=== PATIENT | female | born 1995 | race Hispanic/Latino ===

== ENCOUNTER 2022-05-19 05:11 | Emergency (ER) | payer OTHER ==
[~2022-05-19] VITALS: Ht 175.3 cm; Wt 108.9 kg
[2022-05-19] MEDS ORDERED: MAG/ALUM/SIMETH 30 ML UDCUP ONE (05:34)
[2022-05-19] MEDS ORDERED: DICYCLOMINE HCL 10 MG/5 ML ML PO ONE (05:34)
[2022-05-19] MEDS ORDERED: LIDOCAINE HCL 2% VISCOUS 15 ML UDCUP ONE (05:34)
[2022-05-19] MEDS ORDERED: ONDANSETRON ODT 4MG TAB ONE (05:35)
[2022-05-19] MEDS ORDERED: MORPHINE 2 MG SYG ONE (05:54)
[2022-05-19] MEDS ORDERED: PANTOPRAZOLE 40 MG/VIAL ONE (05:54)
[2022-05-19] MEDS ORDERED: 0.9%NACL 1000ML 1,000 ML IV ONE ×2 (05:56→06:00)
[2022-05-19] MEDS ORDERED: MORPHINE 2 MG SYG IVP ONE (06:00)
[2022-05-19] MEDS ORDERED: ONDANSETRON 4MG INJ IVP ONE (06:00)
[2022-05-19] MEDS ORDERED: MAG/ALUM/SIMETH 30 ML UDCUP PO ONE (06:00)
[2022-05-19] MEDS ORDERED: LIDOCAINE HCL 2% VISCOUS 15 ML UDCUP PO ONE (06:00)
[2022-05-19] MEDS ORDERED: ONDANSETRON ODT 4MG TAB SL ONE (06:00)
[2022-05-19] MEDS ORDERED: PANTOPRAZOLE 40 MG/VIAL IVP ONE (06:00)
[2022-05-19] MEDS ORDERED: DICYCLOMINE HCL 10 MG/5 ML ML PO SCH (06:00)
[2022-05-19 06:37] LABS: HCG,QUALITATIVE URINE NEGATIVE (NEGATIVE)
[2022-05-19 06:38] LABS: BASOPHILS % (AUTO) 0.3 % (0.0-5.0); EOSINOPHILS % (AUTO) 0.7 % (0.0-8.0); LYMPHOCYTES % (AUTO) 16.6 % (21.0-51.0); MEAN CORPUSCULAR HEMOGLOBIN 27.1 pg (27.0-33.0); MEAN CORPUSCULAR HGB CONC 32.5 g/dL (32.0-36.0); MEAN CORPUSCULAR VOLUME 83.5 fL (79-99); MONOCYTES % (AUTO) 3.9 % (3.0-13.0); NEUTROPHILS % (AUTO) 78.2 % (40.0-77.0); PLATELET COUNT (AUTO) 330 K/uL (130-400); RED BLOOD CELL COUNT(AUTO) 4.79 MIL/uL (4.00-5.50); RED CELL DISTRIBUTION WIDTH 13.9 % (11.0-15.5); WHITE BLOOD COUNT (AUTO) 10.7 K/uL (4.8-10.8)
[2022-05-19 06:43] LABS: CREATININE 0.8 mg/dL (0.5-1.5); POTASSIUM 3.6 mmol/L (3.5-5.1)
[2022-05-19 06:47] LABS: ALBUMIN 4.1 g/dL (3.5-5.0); TOTAL PROTEIN, SERUM 8.5 g/dL (6.0-8.3)
[2022-05-19 06:51] LABS: APPEARANCE,URINE CLOUDY (CLEAR); BILIRUBIN,URINE NEGATIVE (NEGATIVE); COLOR,URINE LIGHT-YELLOW (YELLOW); GLUCOSE, URINE (UA) NEGATIVE (NEGATIVE); KETONES,URINE NEGATIVE (NEGATIVE); LEUKOCYTE ESTERASE ,URINE 250 Leu/uL (NEGATIVE); NITRATE,URINE NEGATIVE (NEGATIVE); OCCULT BLOOD,URINE NEGATIVE (NEGATIVE); PROTEIN,URINE NEGATIVE (NEGATIVE); UROBILINOGEN,URINE 0.2 mg/dL (0.2-1.0)
[2022-05-19 06:56] LABS: MUCUS,URINE RARE LPF (None Seen); SQUAMOUS EPITHELIAL CELL,UR FEW /HPF (0-2)
[2022-05-19 07:27] VITALS: BP 118/73
[2022-05-19] MEDS ORDERED: CEPH500B PO (08:45)
[2022-05-19] MEDS ORDERED: PANT40TA55 PO (08:45)
== END 2022-05-19 08:55 | disposition home or self-care (01) ==
LOC: EDH 05:11
DX: N39.0 Urinary tract infection, site not specified (principal); K29.70 Gastritis, unspecified, without bleeding; K21.9 Gastro-esophageal reflux disease without esophagitis; F17.210 Nicotine dependence, cigarettes, uncomplicated
CPT/HCPCS: 99284; 96374; 96375; 96361; 80053; 83690; 85025; 87088; 81001; 81025; 36415; J7030; J2405; C9113

== ENCOUNTER 2022-11-11 20:06 | Emergency (ER) | payer OTHER ==
[~2022-11-11] VITALS: Ht 175.3 cm; Wt 109.3 kg
[~2022-11-11 20:06] MED LIST: CEPH500B PO; PANT40TA55 PO
[2022-11-11] MEDS ORDERED: LIDOCAINE HCL 2% VISCOUS 15 ML UDCUP PO ONE (22:00)
[2022-11-11] MEDS ORDERED: ONDANSETRON 4MG INJ IVP ONE (22:00)
[2022-11-11] MEDS ORDERED: MORPHINE 4 MG SYG IVP ONE (22:00)
[2022-11-11] MEDS ORDERED: 0.9%NACL 1000ML 1,000 ML IV ONE (22:00)
[2022-11-11] MEDS ORDERED: MAG/ALUM/SIMETH 30 ML UDCUP PO ONE (22:00)
[2022-11-11 22:08] LABS: BASOPHILS % (AUTO) 0.4 % (0.0-5.0); EOSINOPHILS % (AUTO) 0.7 % (0.0-8.0); HEMATOCRIT 42.3 % (36-48); LYMPHOCYTES % (AUTO) 16.4 % (21.0-51.0); MEAN CORPUSCULAR HEMOGLOBIN 27.7 pg (27.0-33.0); MEAN CORPUSCULAR HGB CONC 33.1 g/dL (32.0-36.0); MEAN CORPUSCULAR VOLUME 83.8 fL (79-99); MONOCYTES % (AUTO) 3.7 % (3.0-13.0); NEUTROPHILS % (AUTO) 78.4 % (40.0-77.0); PLATELET COUNT (AUTO) 403 K/uL (130-400); RED BLOOD CELL COUNT(AUTO) 5.05 MIL/uL (4.00-5.50); RED CELL DISTRIBUTION WIDTH 13.7 % (11.0-15.5)
[2022-11-11 22:10] LABS: APPEARANCE,URINE CLEAR (CLEAR); BILIRUBIN,URINE NEGATIVE (NEGATIVE); COLOR,URINE LIGHT-YELLOW (YELLOW); GLUCOSE, URINE (UA) NEGATIVE (NEGATIVE); KETONES,URINE 10 mg/dL (NEGATIVE); LEUKOCYTE ESTERASE ,URINE 25 Leu/uL (NEGATIVE); NITRATE,URINE NEGATIVE (NEGATIVE); OCCULT BLOOD,URINE NEGATIVE (NEGATIVE); PH,URINE 6.5 (5.0-8.0); PROTEIN,URINE 10 mg/dL (NEGATIVE); UROBILINOGEN,URINE 0.2 mg/dL (0.2-1.0)
[2022-11-11 22:12] LABS: HCG,QUALITATIVE URINE NEGATIVE (NEGATIVE)
[2022-11-11 22:14] LABS: BACTERIA,URINE RARE /HPF (None Seen); MUCUS,URINE RARE LPF (None Seen); SQUAMOUS EPITHELIAL CELL,UR RARE /HPF (0-2); YEAST,URINE BUDDING FEW /HPF (None Seen)
[2022-11-11 22:20] LABS: POTASSIUM 3.4 mmol/L (3.5-5.1)
[2022-11-11 22:24] LABS: ALBUMIN 4.3 g/dL (3.5-5.0); TOTAL PROTEIN, SERUM 8.5 g/dL (6.0-8.3)
[2022-11-11] MEDS ORDERED: POTASSIUM BICARB/CIT AC 25 MEQ TABLET.EFF PO ONE (22:30)
[2022-11-11] MEDS ORDERED: CEPH500B PO (22:59)
[2022-11-11] MEDS ORDERED: FAMO20TA8 PO (22:59)
[2022-11-11] MEDS ORDERED: FAMOTIDINE 20MG TAB PO ONE (23:00)
[2022-11-11 23:38] VITALS: BP 136/70
== END 2022-11-11 23:41 | disposition home or self-care (01) ==
LOC: EDH 20:06
DX: K29.70 Gastritis, unspecified, without bleeding (principal); N39.0 Urinary tract infection, site not specified; Z79.899 Other long term (current) drug therapy
CPT/HCPCS: 99285; 96374; 76705; 96361; 96375; 80053; 83690; 85025; 81001; 81025; 36415; 93005; J7030; J2405; J2270